=== PATIENT | female | born 1980 | race Caucasian/White ===

== ENCOUNTER 2018-11-19 19:16 | Emergency (ER) | payer OTHER ==
[~2018-11-19] VITALS: Ht 167.6 cm; Wt 71.7 kg
[2018-11-19] MEDS ORDERED: ATABEX DHA 200200 MG (19:38)
== END 2018-11-20 00:14 | disposition home or self-care (01) ==
LOC: ER 19:16
DX: O20.0 Threatened abortion (principal)

== ENCOUNTER 2019-01-17 05:55 | Day surgery (SDC) | payer OTHER ==
[~2019-01-17 05:55] MED LIST: ATABEX DHA 200200 MG
[2019-01-17] MEDS ORDERED: DOXYCYCLINE HY100 M3 PO (08:52)
[2019-01-17] MEDS ORDERED: Tylenol #3 PO (08:52)
== END 2019-01-17 10:30 | disposition home or self-care (01) ==
LOC: CIR.AMB 05:55
DX: O02.1 Missed abortion (principal); Z3A.08 8 weeks gestation of pregnancy